=== PATIENT | female | born 1965 | race Caucasian/White ===

== ENCOUNTER 2024-07-24 07:52 | Outpatient (CLI) | payer BC | END 2024-07-24 07:53 | disposition home or self-care (01) | LOC: NM 07:52 | PROVIDERS: ATTEND Psychiatry & Neurology Neurology | DX: G20.A1 Parkinson's disease without dyskinesia, without mention of fluctuations (principal) | CPT/HCPCS: 78803; A9584 ==

== ENCOUNTER 2024-08-08 09:53 | Outpatient (CLI) | payer BC | END 2024-08-08 09:54 | disposition home or self-care (01) | LOC: SCSMRI 09:53 | PROVIDERS: ATTEND Nurse Practitioner Family | DX: S22.079A Unspecified fracture of T9-T10 vertebra, initial encounter for closed fracture (principal); Q76.49 Other congenital malformations of spine, not associated with scoliosis; M47.816 Spondylosis without myelopathy or radiculopathy, lumbar region | CPT/HCPCS: 72146; 72148 ==